=== PATIENT | male | born 1940 | race Caucasian/White ===

== ENCOUNTER 2016-07-15 09:54 | Emergency (ER) | payer MEDICARE, BC ==
[2016-07-15 10:16] VITALS: BP 126/75
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
[2016-07-15] MEDS ORDERED: Lidocaine 1%* 5 ML VIAL INJ ONE (11:17)
== END 2016-07-15 12:03 | disposition home or self-care (01) ==
LOC: UCCORT 09:54
DX: S80.12XS Contusion of left lower leg, sequela (principal); S80.812S Abrasion, left lower leg, sequela; L03.116 Cellulitis of left lower limb; X58.XXXS Exposure to other specified factors, sequela
CPT/HCPCS: 10160; 87070; 87205; 99202; G0463

== ENCOUNTER 2016-07-21 15:37 | Emergency (ER) | payer MEDICARE, BC ==
[2016-07-21 15:53] VITALS: BP 149/88
--- NOTE | 2016-07-21 16:30 | UC ---
Lower Extremity/Ankle HPI - HPI Summary HPI Summary: left leg wound x 1 week was treated for cellulites , the area cont. to be swollen, red, pt. is concern about foreign body no fever, no chills - History of Current Complaint Chief Complaint: UCSkin Stated Complaint: RE-CHECK LEFT LEG INFECTION Time Seen by Provider: 07/21/16 15:43 Hx Obtained From: Patient Onset/Duration: Gradual Onset, Lasting Days - 7, Still Present Severity Initially: Moderate Severity Currently: Moderate Aggravating Factor(s): Standing, Ambulation Alleviating Factor(s): Nothing Able to Bear Weight: Yes - Allergies/Home Medications Allergies/Adverse Reactions: Allergies Allergy/AdvReac Type Severity Reaction Status Date / Time No Known Allergies Allergy Verified 07/21/16 15:52 Home Medications: Home Medications Aspirin [Aspirin 81 MG TAB] 81 mg PO QPM 07/21/16 [History Confirmed 07/21/16] PMH/Surg Hx/FS Hx/Imm Hx Previously Healthy: Yes - Surgical History Surgical History: None - Family History Known Family History: Positive: Hypertension - Social History Alcohol Use: None Substance Use Type: None Smoking Status (MU): Never Smoked Tobacco Review of Systems Constitutional: Negative Skin: Negative Eyes: Negative ENT: Negative All Other Systems Reviewed And Are Negative: Yes Physical Exam Triage Information Reviewed: Yes Appearance: Well-Appearing, No Pain Distress, Well-Nourished Vital Signs: Initial Vital Signs Temp 97.6 F 07/21/16 15:41 Pulse 75 07/21/16 15:41 Resp 22 07/21/16 15:41 BP 149/88 07/21/16 15:41 Vital Signs Reviewed: Yes Eyes: Positive: Conjunctiva Clear ENT Exam: Normal ENT: Positive: Normal ENT inspection, Hearing grossly normal Neck: Positive: Supple, Nontender, No Lymphadenopathy Respiratory: Positive: Chest non-tender, Lungs clear, Normal breath sounds Cardiovascular: Positive: RRR, No Murmur, Pulses Normal Skin: Positive: Other - left lower leg : + area of erythem, swollen, tender to touch, concern about hematoma Procedures - Incision and Drainage Site: left lower leg , i&D hematoma Anesthesia: Local, Lidocaine - 2% with epi 3 cc Instrument(s): Scalpel - #11, Needle - 25 g Lower Extremity Course/Dx - Differential Dx/Diagnosis Provider Diagnoses: hematoma left lower leg Discharge - Discharge Plan Condition: Stable Disposition: HOME Patient Education Materials: Contusion in Adults (ED), Hematoma (ED) Referrals: Non Staff,Doctor [Primary Care Provider] - 4 Days Additional Instructions: change the dressing daily moist heat frequently follow up in 4 days , sooner if any sign of infection
[2016-07-21] MEDS ORDERED: Lidocaine 2% W/EPI 1:100,000* 20 ML MDV INJ ONE (16:45)
--- NOTE | 2016-07-21 17:06 | RAD ---
INDICATION: Soft tissue injury overlying the medial left lower leg. COMPARISON: None. TECHNIQUE: 3 views of the left ankle were obtained. FINDINGS: The well corticated bones exhibit normal alignment. Joint spaces appear maintained. No fracture is seen. IMPRESSION: Normal ankle radiograph. If the patient's symptoms persist, follow-up imaging is recommended.
== END 2016-07-21 17:26 | disposition home or self-care (01) ==
LOC: UCCORT 15:37
DX: S80.12XD Contusion of left lower leg, subsequent encounter (principal); X58.XXXD Exposure to other specified factors, subsequent encounter
CPT/HCPCS: 10140; 99211; G0463

== ENCOUNTER 2016-07-25 09:06 | Emergency (ER) | payer MEDICARE, BC ==
[2016-07-25 09:18] VITALS: BP 131/82
[2016-07-25] MEDS ORDERED: Silver Sulfadiazine 1%* 20 GM TOPICAL ONE (09:53)
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
== END 2016-07-25 10:29 | disposition home or self-care (01) ==
LOC: UCCORT 09:06
DX: T25.212A Burn of second degree of left ankle, initial encounter (principal); T31.0 Burns involving less than 10% of body surface; X19.XXXA Contact with other heat and hot substances, initial encounter; Y93.9 Activity, unspecified
CPT/HCPCS: 99213; A9270-GY; G0463